=== PATIENT | female | born 1995 | race Caucasian/White ===

== ENCOUNTER 2017-01-18 18:28 | Observation (INO) | payer OTHER ==
[~2017-01-18] VITALS: Ht 182.9 cm; Wt 93.6 kg
[2017-01-18] MEDS ORDERED: SODIUM CHLORIDE 0.9% 1000ML 1,000 ML IV STA (20:08)
[2017-01-18] MEDS ORDERED: MoRPHine SULFATE 4 MG/ML 1 ML CARP\\VIAL IV STA (20:08)
[2017-01-18] MEDS ORDERED: ONDANSETRON 8 MG/54 ML D5W IV STA (20:08)
[2017-01-18] MEDS ORDERED: FLUT0.15 (20:16)
[2017-01-18] MEDS ORDERED: BCPILLS PO (20:16)
[2017-01-18] MEDS ORDERED: IBUP-1050 PO (20:16)
[2017-01-18] MEDS ORDERED: ASCO500C43 PO (20:16)
[2017-01-18 20:20] LABS: HEMATOCRIT 39.6 % (37-47); MEAN CORPUSCULAR HEMOGLOBIN 28.3 pg (25-34); MEAN CORPUSCULAR HGB CONC 33.3 g/dl (32-36); MEAN PLATELET VOLUME 10.3 fL (7.4-10.4); PLATELET COUNT 199 K/uL (130-400); RED BLOOD COUNT 4.66 M/uL (4.2-5.4); WHITE BLOOD COUNT 6.96 K/uL (4.8-10.8)
[2017-01-18] MEDS ORDERED: OPTIRAY 320 IV PRN (20:30)
[2017-01-18 20:31] LABS: MANUAL MICROSCOPIC REQUIRED? NO; REVIEW REQ? NO; URINE APPEARANCE CLEAR (CLEAR); URINE BILIRUBIN NEG (NEG); URINE COLOR YELLOW; URINE EPITHELIAL CELL AUTO >30 /lpf (0-5); URINE NITRITE NEG (NEG); URINE SPECIFIC GRAVITY 1.011 (1.000-1.030); UROBILINOGEN NEG (NEG); ZZUR CULT IF INDIC CLEAN CATCH YES
[2017-01-18 20:34] LABS: PARTIAL THROMBOPLASTIN RATIO 1.2; PROTHROMBIN TIME (PATIENT) 10.6 SECONDS (9.0-12.0)
[2017-01-18 20:40] LABS: BUN/CREATININE RATIO 11.5 (10-20); CALCIUM 8.6 mg/dl (8.5-10.1); POTASSIUM 3.8 mmol/L (3.5-5.1)
[2017-01-18 21:00] LABS: BASO % 0.9 %; BASO ABS # 0.06 K/uL (0-0.2); COMPLETE YES; EOS % 0.1 %; IG% 0.3 %; MONO % 5.2 %; NEUT % 60.5 %
--- NOTE | 2017-01-18 21:28 | DIAGNOSTIC IMAGING REPORT ---
CT ABD/PELVIS IV CONTRAST ONLY CLINICAL HISTORY: Abdominal pain. Constipation. Pain worse in the left lower quadrant. COMPARISON STUDY: None. TECHNIQUE: Following the IV administration of 116 mL of Optiray-320, CT scan of the abdomen and pelvis was performed from the lung bases to the proximal femurs. Images are reviewed in the axial, sagittal, and coronal planes. IV contrast was administered without complication. A dose lowering technique was utilized adhering to the principles of ALARA. CT DOSE: 489.03 mGy.cm FINDINGS: Lower chest: The heart is normal in size and configuration, without pericardial effusion. The lung bases and pleural spaces are clear. Liver: The contrast-enhanced liver is normal in size, contour, and attenuation. There is no intrahepatic biliary ductal dilatation. The hepatic veins and portal veins are patent. Gallbladder: Unremarkable. Spleen: The spleen is borderline enlarged measuring 13.1 cm Pancreas: Unremarkable. Adrenal glands: Unremarkable. Kidneys: There is symmetric renal cortical enhancement. The kidneys are normal in size without hydronephrosis. Bowel: Bowel evaluation is somewhat limited given the lack of orally administered contrast. There are no transition zones to indicate bowel obstruction. There are multiple fluid-filled pelvic small bowel loops. This could be secondary to an ileus or enteritis. The appendix appears normal Peritoneum: No free air is visualized. There is no significant free pelvic fluid Vasculature: The abdominal aorta is normal in course and caliber. Adenopathy: None. Pelvic viscera: Evaluation of the adnexal structures is difficult due to adjacent fluid-filled bowel loops, as no oral contrast was administered Skeletal structures: No destructive osseous lesions are seen. IMPRESSION: 1. Examination limited due to the lack of orally administered contrast 2. No evidence of bowel obstruction. No evidence of free air 3. Normal appendix 4. Prominent fluid-filled terminal ileum, and other fluid-filled small bowel loops. This is a nonspecific finding which could indicate an ileus or enteritis. 5. Borderline splenic enlargement Electronically signed by: Alex Kearney M.D. 01/18/2017 9:27 PM Dictated Date/Time: 01/18/2017 9:21 PM
[2017-01-18] MEDS ORDERED: ONDANSETRON INJ 2 MG/ML 2 ML VIAL IV PRN (23:15)
--- NOTE | 2017-01-18 23:15 | History and Physical ---
History & Physical Date & Time of Service: Jan 18, 2017 at 23:01 Chief Complaint: Bowel Obstruction,Sent By Audio[employer] Primary Care Physician: [facility] History of Present Illness Source: patient This is a 21-year-old female who presented to the emergency room with a complaint of abdominal pain. She has also had fever. This all began about 2 weeks ago. It was initially intermittent but the discomfort has now increased in intensity as well as frequency such that she is now having almost continuously. The more severe discomfort is in the left lower quadrant. She has a history of chronic constipation for which she normally took fiber gummis however the constipation seems to be worse as well. She has not had a bowel movement in the last 3-4 days. She normally would go 3 days or less. She had a small amount of blood with her bowels for one day at the beginning of this episode however that has resolved. She does not things that she is passing as much stool as she normally would've with each bowel movement. She has had fever as high as 100. That is also intermittent but seems to be more frequent. She has had fatigue. She denies myalgia and arthralgia. She has not had associated nausea or vomiting. She has been able to eat but her appetite has been poor. She is a nursing staffing coordinator appearance date. She does not think she has had exposure to anyone with mononucleosis, Past Medical/Surgical History Medical Problems: (1) Benign tumor Status: Resolved Social History Smoking Status: Never Smoker Allergies Coded Allergies: No Known Allergies (Unverified , 01/18/17) Home Medications Scheduled Ascorbic Acid (Vitamin C 500 mg), 500 MG PO DAILY Control Pills ( Control Pills), 1 TAB PO DAILY Fluticasone Propionate (Nasal) (Flonase Allergy Relief), 2 SPRAYS NA DAILY Ibuprofen (Advil), 400 MG PO PRN UD Review of Systems Constitutional: + fever, + fatigue, No chills Respiratory: No cough, No sputum Cardiovascular: No chest pain Abdomen: + problem reported (as per HPI) Genitourinary - Female: + problem reported (as per HPI) Endocrine: + fatigue Integumentary: No rash Physical Exam Vital Signs Date Time Temp Pulse Resp B/P (MAP) Pulse Ox O2 Delivery O2 Flow Rate FiO2 01/18/17 21:57 97 18 138/87 99 Room Air 01/18/17 19:45 36.9 100 20 125/76 97 01/18/17 18:55 37.4 108 18 99 Room Air General Appearance: WD/WN, no apparent distress Head: normocephalic Neck: supple, no adenopathy Respiratory/Chest: chest non-tender, lungs clear Cardiovascular: regular rate, rhythm Abdomen/GI: normal bowel sounds, non tender Back: normal inspection Skin: + rash (petechial areas in the lower extremities below the knees bilaterally) Lymphatic: + axillary node abnormality (2 small lymph nodes in the left axilla) , + inguinal node abnormality (a few shotty nodes in the left inguinal area) Rectal exam: had no masses. Moderate amount of hard stool that was heme negative. Diagnostics Laboratory Results Results Past 24 Hours Test 01/18/17 00:00 01/18/17 20:00 Range/Units Urine Color YELLOW Urine Appearance CLEAR CLEAR Urine pH 6.0 4.5-7.5 Urine Specific [place] 1.011 1.000-1.030 Urine Protein NEG NEG Urine Glucose (UA) NEG NEG Urine Ketones 1+ NEG Urine Occult Blood NEG NEG Urine Nitrite NEG NEG Urine Bilirubin NEG NEG Urine Urobilinogen NEG NEG Urine Leukocyte Esterase TRACE NEG Urine WBC (Auto) 1-5 0-5 /hpf Urine RBC (Auto) 0-4 0-4 /hpf Urine Hyaline Casts (Auto) 1-5 0-5 /lpf Urine Epithelial Cells (Auto) >30 0-5 /lpf Urine Bacteria (Auto) 1+ NEG Urine Test NEG NEG White Blood Count 6.96 4.8-10.8 K/uL Red Blood Count 4.66 4.2-5.4 M/uL Hemoglobin 13.2 12.0-16.0 g/dL Hematocrit 39.6 37-47 % Mean Corpuscular Volume 85.0 80-100 fL Mean Corpuscular Hemoglobin 28.3 25-34 pg Mean Corpuscular Hemoglobin Concent 33.3 32-36 g/dl Platelet Count 199 130-400 K/uL Mean Platelet Volume 10.3 7.4-10.4 fL Neutrophils (%) (Auto) 60.5 % Lymphocytes (%) (Auto) 33.0 % Monocytes (%) (Auto) 5.2 % Eosinophils (%) (Auto) 0.1 % Basophils (%) (Auto) 0.9 % Neutrophils # (Auto) 4.21 1.4-6.5 K/uL Lymphocytes # (Auto) 2.30 1.2-3.4 K/uL Monocytes # (Auto) 0.36 0.11-0.59 K/uL Eosinophils # (Auto) 0.01 0-0.5 K/uL Basophils # (Auto) 0.06 0-0.2 K/uL RDW Standard Deviation 41.7 36.4-46.3 fL RDW Coefficient of Variation 13.4 11.5-14.5 % Immature Granulocyte % (Auto) 0.3 % Immature Granulocyte # (Auto) 0.02 0.00-0.02 K/uL Red Blood Cell Morphology Unremarkable Prothrombin Time 10.6 9.0-12.0 SECONDS Prothromb Time International Ratio 1.0 0.9-1.1 Activated Partial Thromboplast Time 30.1 21.0-31.0 SECONDS Partial Thromboplastin Ratio 1.2 Sodium Level 135 136-145 mmol/L Potassium Level 3.8 3.5-5.1 mmol/L Chloride Level 105 98-107 mmol/L Carbon Dioxide Level 22 21-32 mmol/L Anion Gap 8.0 3-11 mmol/L Blood Urea Nitrogen 11 7-18 mg/dl Creatinine 1.00 0.60-1.20 mg/dl Est Creatinine Clear Calc Drug Dose 114.2 ml/min Estimated GFR () 93.3 Estimated GFR (Non- 80.5 BUN/Creatinine Ratio 11.5 10-20 Random Glucose 79 70-99 mg/dl Calcium Level 8.6 8.5-10.1 mg/dl Total Bilirubin 0.5 0.2-1 mg/dl Direct Bilirubin 0.1 0-0.2 mg/dl Aspartate Amino Transf (AST/SGOT) 39 15-37 U/L Alanine Aminotransferase (ALT/SGPT) 72 12-78 U/L Alkaline Phosphatase 88 45-117 U/L Total Protein 7.1 6.4-8.2 gm/dl Albumin 3.4 3.4-5.0 gm/dl Lipase 144 73-393 U/L Microbiology Results 01/18/17 Urine Culture, Received Pending Diagnostic Radiology FINDINGS: Lower chest: The heart is normal in size and configuration, without pericardial effusion. The lung bases and pleural spaces are clear. Liver: The contrast-enhanced liver is normal in size, contour, and attenuation. There is no intrahepatic biliary ductal dilatation. The hepatic veins and portal veins are patent. Gallbladder: Unremarkable. Spleen: The spleen is borderline enlarged measuring 13.1 cm Pancreas: Unremarkable. Adrenal glands: Unremarkable. Kidneys: There is symmetric renal cortical enhancement. The kidneys are normal in size without hydronephrosis. Bowel: Bowel evaluation is somewhat limited given the lack of orally administered contrast. There are no transition zones to indicate bowel obstruction. There are multiple fluid-filled pelvic small bowel loops. This could be secondary to an ileus or enteritis. The appendix appears normal Peritoneum: No free air is visualized. There is no significant free pelvic fluid Vasculature: The abdominal aorta is normal in course and caliber. Adenopathy: None. Pelvic viscera: Evaluation of the adnexal structures is difficult due to adjacent fluid-filled bowel loops, as no oral contrast was administered Skeletal structures: No destructive osseous lesions are seen. IMPRESSION: 1. Examination limited due to the lack of orally administered contrast 2. No evidence of bowel obstruction. No evidence of free air 3. Normal appendix 4. Prominent fluid-filled terminal ileum, and other fluid-filled small bowel loops. This is a nonspecific finding which could indicate an ileus or enteritis. 5. Borderline splenic enlargement Impression Assessment and Plan This patient has escalating abdominal discomfort with fever and constipation. There is no bowel obstruction by exam or by CT scan but she does have dilated small bowel that is fluid-filled. She has mild tenderness. Her white blood cell count is normal as is her white blood cell differential. The etiology of her symptoms is unclear. The etiology of her symptoms is unclear. We'll put her in under observation status with IV hydration. We'll get a Monospot. We' ll also administer MiraLAX for constipation. We'll continue with serial exams.
--- NOTE | 2017-01-18 23:31 | EMERGENCY ROOM VISIT NOTE ---
History Report prepared by Gerry: Kwame Dudley Under the Supervision of: Dr. Lb Galvan M.D. First contact with patient: 19:32 Chief Complaint: GI ASSESSMENT Stated Complaint: BOWEL OBSTRUCTION,SENT BY [employer] [facility] Triage Summary: see triage note History of Present Illness The patient is a 21 year old white female who presents to the ED with a cc of constant mild abdominal pain beginning one week ago. Positive fever, back pain, sore throat, and nausea. Her fevers began two weeks ago and peaked at 102 degrees. Seen at [facility] just prior to arrival and was found to have a bowel obstruction by x-ray. Has not been able to pass gas for a few days. Negative vomiting, cough, vaginal discharge, urinary symptoms. No previous abdominal surgeries. Her LNMP was two weeks ago. Source of History: patient Onset: One week ago Position: abdomen Symptom Intensity: mild Timing: constant Associated Symptoms: + fevers (two weeks ago peaking at 102 degrees), + sorethroat, + nausea, + back pain, No cough, No vomiting Note: Negative: vaginal discharge. Review of Systems See HPI for pertinent positives and negatives. A total of ten systems were reviewed and were otherwise negative. Past Medical & Surgical Medical Problems: (1) Abdominal pain (2) Benign tumor (3) Constipation (4) Fever (5) No Known Active Medical Problems Family History No pertinent family history stated. Social History Smoking Status: Never Smoker Occupation Status: [employer] student Current/Historical Medications Scheduled Ascorbic Acid (Vitamin C 500 mg), 500 MG PO DAILY Control Pills ( Control Pills), 1 TAB PO DAILY Fluticasone Propionate (Nasal) (Flonase Allergy Relief), 2 SPRAYS NA DAILY Ibuprofen (Advil), 400 MG PO PRN UD Allergies Coded Allergies: No Known Allergies (Unverified , 01/18/17) Physical Exam Vital Signs Date Time Temp Pulse Resp B/P (MAP) Pulse Ox O2 Delivery O2 Flow Rate FiO2 01/18/17 23:03 37.1 91 18 126/81 100 Room Air 01/18/17 21:57 97 18 138/87 99 Room Air 01/18/17 19:45 36.9 100 20 125/76 97 01/18/17 18:55 37.4 108 18 99 Room Air Physical Exam GENERAL: Awake, alert, mildly uncomfortable-appearing, NAD HENT: Normocephalic, atraumatic. EYES: Normal conjunctiva. Sclera non-icteric. NECK: Supple. No nuchal rigidity. FROM. RESPIRATORY: CTAB, no rhonchi, wheezing, crackles CARDIAC: Tachycardic rate, regular rhythm, no MRG ABDOMEN: Soft, BS+. Mild diffuse abdominal TTP. Worse in the LLQ. Negative obturators and Psoas. MSK: No chest wall TTP, no LE edema NEURO: GCS 15, CN 2-12 intact, moves all 4s on command SKIN: No rash or jaundice noted. Nonblanching petechiae of the bilateral lower extremities. Medical Decision & Procedures ER Provider Diagnostic Interpretation: CT: Radiology results as stated below per my review and radiologist interpretation CT ABD/PELVIS IV CONTRAST ONLY FINDINGS: Lower chest: The heart is normal in size and configuration, without pericardial effusion. The lung bases and pleural spaces are clear. Liver: The contrast-enhanced liver is normal in size, contour, and attenuation. There is no intrahepatic biliary ductal dilatation. The hepatic veins and portal veins are patent. Gallbladder: Unremarkable. Spleen: The spleen is borderline enlarged measuring 13.1 cm Pancreas: Unremarkable. Adrenal glands: Unremarkable. Kidneys: There is symmetric renal cortical enhancement. The kidneys are normal in size without hydronephrosis. Bowel: Bowel evaluation is somewhat limited given the lack of orally administered contrast. There are no transition zones to indicate bowel obstruction. There are multiple fluid-filled pelvic small bowel loops. This could be secondary to an ileus or enteritis. The appendix appears normal Peritoneum: No free air is visualized. There is no significant free pelvic fluid Vasculature: The abdominal aorta is normal in course and caliber. Adenopathy: None. Pelvic viscera: Evaluation of the adnexal structures is difficult due to adjacent fluid-filled bowel loops, as no oral contrast was administered Skeletal structures: No destructive osseous lesions are seen. IMPRESSION: 1. Examination limited due to the lack of orally administered contrast 2. No evidence of bowel obstruction. No evidence of free air 3. Normal appendix 4. Prominent fluid-filled terminal ileum, and other fluid-filled small bowel loops. This is a nonspecific finding which could indicate an ileus or enteritis. 5. Borderline splenic enlargement Electronically signed by: Alex Kearney M.D. 01/18/2017 9:27 PM Laboratory Results 01/18/17 20:00 Red Blood Count 4.66, Mean Corpuscular Volume 85.0, Mean Corpuscular Hemoglobin 28.3, Mean Corpuscular Hemoglobin Concent 33.3, Mean Platelet Volume 10.3, Neutrophils (%) (Auto) 60.5, Lymphocytes (%) (Auto) 33.0, Monocytes (%) (Auto) 5.2, Eosinophils (%) (Auto) 0.1, Basophils (%) (Auto) 0.9, Neutrophils # (Auto) 4.21, Lymphocytes # (Auto) 2.30, Monocytes # (Auto) 0.36, Eosinophils # (Auto) 0.01, Basophils # (Auto) 0.06 01/18/17 20:00 Test 01/18/17 00:00 01/18/17 20:00 Urine Color YELLOW Urine Appearance CLEAR (CLEAR) Urine pH 6.0 (4.5-7.5) Urine Specific [place] 1.011 (1.000-1.030) Urine Protein NEG (NEG) Urine Glucose (UA) NEG (NEG) Urine Ketones 1+ (NEG) Urine Occult Blood NEG (NEG) Urine Nitrite NEG (NEG) Urine Bilirubin NEG (NEG) Urine Urobilinogen NEG (NEG) Urine Leukocyte Esterase TRACE (NEG) Urine WBC (Auto) 1-5 /hpf (0-5) Urine RBC (Auto) 0-4 /hpf (0-4) Urine Hyaline Casts (Auto) 1-5 /lpf (0-5) Urine Epithelial Cells (Auto) >30 /lpf (0-5) Urine Bacteria (Auto) 1+ (NEG) Urine Test NEG (NEG) White Blood Count 6.96 K/uL (4.8-10.8) Red Blood Count 4.66 M/uL (4.2-5.4) Hemoglobin 13.2 g/dL (12.0-16.0) Hematocrit 39.6 % (37-47) Mean Corpuscular Volume 85.0 fL (80-100) Mean Corpuscular Hemoglobin 28.3 pg (25-34) Mean Corpuscular Hemoglobin Concent 33.3 g/dl (32-36) Platelet Count 199 K/uL (130-400) Mean Platelet Volume 10.3 fL (7.4-10.4) Neutrophils (%) (Auto) 60.5 % Lymphocytes (%) (Auto) 33.0 % Monocytes (%) (Auto) 5.2 % Eosinophils (%) (Auto) 0.1 % Basophils (%) (Auto) 0.9 % Neutrophils # (Auto) 4.21 K/uL (1.4-6.5) Lymphocytes # (Auto) 2.30 K/uL (1.2-3.4) Monocytes # (Auto) 0.36 K/uL (0.11-0.59) Eosinophils # (Auto) 0.01 K/uL (0-0.5) Basophils # (Auto) 0.06 K/uL (0-0.2) RDW Standard Deviation 41.7 fL (36.4-46.3) RDW Coefficient of Variation 13.4 % (11.5-14.5) Immature Granulocyte % (Auto) 0.3 % Immature Granulocyte # (Auto) 0.02 K/uL (0.00-0.02) Red Blood Cell Morphology Unremarkable Prothrombin Time 10.6 SECONDS (9.0-12.0) Prothromb Time International Ratio 1.0 (0.9-1.1) Activated Partial Thromboplast Time 30.1 SECONDS (21.0-31.0) Partial Thromboplastin Ratio 1.2 Anion Gap 8.0 mmol/L (3-11) Est Creatinine Clear Calc Drug Dose 114.2 ml/min Estimated GFR () 93.3 Estimated GFR (Non- 80.5 BUN/Creatinine Ratio 11.5 (10-20) Calcium Level 8.6 mg/dl (8.5-10.1) Total Bilirubin 0.5 mg/dl (0.2-1) Direct Bilirubin 0.1 mg/dl (0-0.2) Aspartate Amino Transf (AST/SGOT) 39 U/L (15-37) Alanine Aminotransferase (ALT/SGPT) 72 U/L (12-78) Alkaline Phosphatase 88 U/L (45-117) Total Protein 7.1 gm/dl (6.4-8.2) Albumin 3.4 gm/dl (3.4-5.0) Lipase 144 U/L (73-393) Monoscreen NEG (NEG) Laboratory results reviewed by me Medications Administered Medications (Trade) Dose Ordered Sig/Zainab Route Start Time Stop Time Status Last Admin Dose Admin Sodium Chloride 1,000 ml @ 999 mls/hr Q1H1M STAT IV 01/18/17 20:08 01/18/17 21:08 DC 01/18/17 20:51 999 MLS/HR Sodium Chloride 1,000 ml @ 150 mls/hr Q6H40M IV 01/18/17 23:09 02/17/17 23:08 01/19/17 00:24 150 MLS/HR ED Course 2001: The patient was evaluated in room B4B. A complete history and physical exam was performed. 2209: Upon reexamination, the patient was resting comfortably. I discussed the test results and treatment plan with her. The patient will be evaluated for further management. Medical Decision The patient is a 21 year old white female who presents to the ED with a cc of constant mild abdominal pain beginning one week ago. Patient found to have a bowel obstruction by x-ray at [facility] just prior to arrival. Differential diagnosis: Etiologies such as appendicitis, diverticulitis, PUD, biliary pathology, UTI, pancreatitis, obstruction, mesenteric ischemia, aortic pathology, infections, inflammatory bowel disease, renal colic, as well as others were entertained. Patient was seen in and evaluated at the bedside. Patient was seen at an [facility] and had a abdomen film which she states was read as concerning for obstruction. Patient states she is not had a bowel movement approximately one week. Patient states she has been obstipated for the last several days not passing gas. Patient has no prior history of abdominal surgeries. Patient states that she has had fever with some intermittent abdominal pain for about 2 weeks. Patient denies any emesis. Patient had blood work as well as CT abdomen pelvis which was completed. Patient was seen to have fluid-filled bowel loops at the ileum concerning for possible ileus but w/o true obstruction. I spoke with the general surgeon who agreed to evaluate the patient given the nature of the patient's complaint the chronicity of symptoms. Patient was admitted to general surgery with the medicine consult. Medication Reconcilliation Current Medication List: was personally reviewed by me Blood Pressure Screening Patient's blood pressure: Normal blood pressure Blood pressure disposition: Did not require urgent referral Consults Time Called: 2199 Consulting Physician: Dr. Vasquez -General Surgery Returned Call: [phone] Discussed the patient's case. The patient will be evaluated for further treatment and disposition. Impression Primary Impression: Ileus Additional Impression: Abdominal pain Scribe Attestation The scribe's documentation has been prepared under my direction and personally reviewed by me in its entirety. I confirm that the note above accurately reflects all work, treatment, procedures, and medical decision making performed by me. Departure Information Dispostion Being Evaluated By Hospitalist Referrals No Doctor, Assigned (PCP) Patient Instructions My [facility] Problem Qualifiers Additional Impression: Abdominal pain Abdominal location: generalized Qualified Codes: R10.84 - Generalized abdominal pain
[2017-01-19] VITALS: BP 123/82; PULSE 91; TEMP 36.4; Ht 182.9 cm; Wt 93.6 kg
--- NOTE | 2017-01-19 00:16 | Medical Consult ---
Consultation Date of Consultation: Jan 18, 2017 ~ 23:00 . Attending Physician: Guzman Vasquez M.D. Reason for Consultation: fever, rash . 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 No significant past medical history. Prone to constipation. No history of irritable bowel, inflammatory bowel disease, or other GI problems. 1-2 weeks ago noted irregular bowel habits with alternating constipation and loose bowels. She felt bloated. Took supplemental fiber with some improvement. Noted a few episodes of minimal hematochezia which she attributed to hemorrhoids. Developed worsening diffuse abdominal pain, somewhat relieved by ibuprofen. Noted fever, chills, sweats. Also noted some axillary adenopathy. Today she developed a rash on her legs. No weight loss. Seen in urgent care center where x-rays suggested a bowel obstruction. Referred to ED for further evaluation and management. Surgical evaluation with Dr. Vasquez was requested in ED. . Past Medical/Surgical History Medical Problems: left ureteral reflux and UTI's when infant no chronic health problems Surgical History: sinus surgery adenoidectomy hemorrhoidectomy . Family History no significant FH . Social History Smoking Status: Never Smoker Alcohol Use: socially Occupation Status: [employer] student Allergies Coded Allergies: No Known Allergies (Unverified , 01/18/17) Home Medications Reported Home Medications Medications Dose Route/Sig Max Daily Dose Days Date Category Advil (Ibuprofen) 200 Mg Tab 400 Mg PO PRN UD 01/18/17 Reported Vitamin C 500 mg (Ascorbic Acid) 1 Chw Chw 500 Mg PO DAILY 01/18/17 Reported Flonase Allergy Relief (Fluticasone Propionate (Nasal)) 50 Mcg/Act Spr 2 Sprays NA DAILY 01/18/17 Reported Control Pills (Miscellaneous) Tab 1 Tab PO DAILY 01/18/17 Reported Current Inpatient Medications Current Inpatient Medications Medications (Trade) Dose Ordered Sig/Zainab Route Start Time Stop Time Status Last Admin Dose Admin Ioversol (Optiray 320) 100 ml UD PRN IV 01/18/17 20:30 01/22/17 20:29 Ondansetron HCl (Zofran Inj) 4 mg Q6H PRN IV 01/18/17 23:15 02/17/17 23:14 Polyethylene (Miralax Powder Packet) 17 gm DAILY PRN PO 01/18/17 23:15 02/17/17 23:14 Sodium Chloride 1,000 ml @ 150 mls/hr Q6H40M IV 01/18/17 23:09 02/17/17 23:08 Review of Systems As noted above in HPI. . Physical Exam Date Time Temp Pulse Resp B/P (MAP) Pulse Ox O2 Delivery O2 Flow Rate FiO2 01/18/17 23:44 37.1 91 18 126/81 100 01/18/17 23:03 37.1 91 18 126/81 100 Room Air 01/18/17 21:57 97 18 138/87 99 Room Air 01/18/17 19:45 36.9 100 20 125/76 97 01/18/17 18:55 37.4 108 18 99 Room Air General Appearance: WD/WN, no apparent distress Head: normocephalic, atraumatic Eyes: PERRL, EOMI, sclerae normal ENT: pharynx normal Neck: supple, no adenopathy, thyroid normal Respiratory/Chest: lungs clear Cardiovascular: regular rate, rhythm, no edema, no gallop, + systolic murmur (I / systolic murmur at base) Abdomen/GI: + pertinent finding (quiet bowel sounds, slightly distended, soft, nontender, no palpable masses or organomegaly) Extremities/Musculoskelatal: no calf tenderness Neurologic/Psych: alert, oriented x 3 Skin: + pertinent finding (petechial rash bilat legs) Lymphatic: no adenopathy (no cervical or axillary adenopathy appreciated) Laboratory Results Last 24 Hours Test 01/18/17 20:00 White Blood Count 6.96 K/uL Red Blood Count 4.66 M/uL Hemoglobin 13.2 g/dL Hematocrit 39.6 % Mean Corpuscular Volume 85.0 fL Mean Corpuscular Hemoglobin 28.3 pg Mean Corpuscular Hemoglobin Concent 33.3 g/dl Platelet Count 199 K/uL Mean Platelet Volume 10.3 fL Neutrophils (%) (Auto) 60.5 % Lymphocytes (%) (Auto) 33.0 % Monocytes (%) (Auto) 5.2 % Eosinophils (%) (Auto) 0.1 % Basophils (%) (Auto) 0.9 % Neutrophils # (Auto) 4.21 K/uL Lymphocytes # (Auto) 2.30 K/uL Monocytes # (Auto) 0.36 K/uL Eosinophils # (Auto) 0.01 K/uL Basophils # (Auto) 0.06 K/uL RDW Standard Deviation 41.7 fL RDW Coefficient of Variation 13.4 % Immature Granulocyte % (Auto) 0.3 % Immature Granulocyte # (Auto) 0.02 K/uL Red Blood Cell Morphology Unremarkable Prothrombin Time 10.6 SECONDS Prothromb Time International Ratio 1.0 Activated Partial Thromboplast Time 30.1 SECONDS Partial Thromboplastin Ratio 1.2 Sodium Level 135 mmol/L Potassium Level 3.8 mmol/L Chloride Level 105 mmol/L Carbon Dioxide Level 22 mmol/L Anion Gap 8.0 mmol/L Blood Urea Nitrogen 11 mg/dl Creatinine 1.00 mg/dl Est Creatinine Clear Calc Drug Dose 114.2 ml/min Estimated GFR () 93.3 Estimated GFR (Non- 80.5 BUN/Creatinine Ratio 11.5 Random Glucose 79 mg/dl Calcium Level 8.6 mg/dl Total Bilirubin 0.5 mg/dl Direct Bilirubin 0.1 mg/dl Aspartate Amino Transf (AST/SGOT) 39 U/L Alanine Aminotransferase (ALT/SGPT) 72 U/L Alkaline Phosphatase 88 U/L Total Protein 7.1 gm/dl Albumin 3.4 gm/dl Lipase 144 U/L CT ABD/PELVIS IV CONTRAST ONLY FINDINGS: Lower chest: The heart is normal in size and configuration, without pericardial effusion. The lung bases and pleural spaces are clear. Liver: The contrast-enhanced liver is normal in size, contour, and attenuation. There is no intrahepatic biliary ductal dilatation. The hepatic veins and portal veins are patent. Gallbladder: Unremarkable. Spleen: The spleen is borderline enlarged measuring 13.1 cm Pancreas: Unremarkable. Adrenal glands: Unremarkable. Kidneys: There is symmetric renal cortical enhancement. The kidneys are normal in size without hydronephrosis. Bowel: Bowel evaluation is somewhat limited given the lack of orally administered contrast. There are no transition zones to indicate bowel obstruction. There are multiple fluid-filled pelvic small bowel loops. This could be secondary to an ileus or enteritis. The appendix appears normal Peritoneum: No free air is visualized. There is no significant free pelvic fluid Vasculature: The abdominal aorta is normal in course and caliber. Adenopathy: None. Pelvic viscera: Evaluation of the adnexal structures is difficult due to adjacent fluid-filled bowel loops, as no oral contrast was administered Skeletal structures: No destructive osseous lesions are seen. IMPRESSION: 1. Examination limited due to the lack of orally administered contrast 2. No evidence of bowel obstruction. No evidence of free air 3. Normal appendix 4. Prominent fluid-filled terminal ileum, and other fluid-filled small bowel loops. This is a nonspecific finding which could indicate an ileus or enteritis. 5. Borderline splenic enlargement Electronically signed by: Alex Kearney M.D. 01/18/2017 9:27 PM Dictated Date/Time: 01/18/2017 9:21 PM . Assessment & Plan ABDOMINAL PAIN CT demonstrates fluid-filled loops of small bowel, no apparent bowel obstruction. Evaluated in ED by General Surgery. CT findings are nonspecific. Consider infectious enteritis. Consider inflammatory bowel disease if symptoms persist or worsen. BORDERLINE SPLENOMEGALY Spleen measured 13 cm. May or may not be pathologic (patient is 6 feet tall and spleen size may be within normal limits). CBC and LFT's normal. Monospot pending. FEVER Could be secondary to GI process or other etiology. Consider mononucleosis in light of borderline splenomegaly. No respiratory symptoms. No urinary symptoms and UA negative. Petechial rash raises possibilities of tick-borne illness (e.g., Rickettsia, Ehrlichiosis, Anaplasmosis) or vasculitis. Patient spends time outdoors, but no known tick bites. Check tick-borne illness PCR panel if ongoing unexplained fever. PETECHIAL RASH Platelets normal. May have infectious process or vasculitis. Consider Derm consult if no improvement. VTE PROPHYLAXIS Ambulate. DISPOSITION Will need outpatient f/u for above problems to assure resolution. Thank you for this consultation. We will follow the patient with you during their hospital stay. Dr. Wilkerson will be covering during day shift starting 01/19. You can reach a member of the [facility] Hospitalist Team 16/11 via pager @ [phone]. You can reach me via cell @ [phone]. .
[2017-01-19] MEDS: SODIUM CHLORIDE 0.9% 1000ML 1,000 ML IV SCH ×4 (00:24→18:49)
[2017-01-19] MEDS: IBUPROFEN 600 MG TAB PO PRN ×2 (00:37→10:21)
[2017-01-19] MEDS: POLYETHYLENE (MIRALAX) 17 GM PACK PO PRN ×2 (00:37→10:21)
[2017-01-19] MEDS ORDERED: IV FLUIDS COMPLETED PRN (03:15)
[2017-01-19 07:17] VITALS: BP 117/76; PULSE 108; TEMP 36.9; O2SAT 99
[2017-01-19 07:40] LABS: BASO % 1.1 %; BASO ABS # 0.06 K/uL (0-0.2); COMPLETE YES; EOS % 0.7 %; HEMATOCRIT 40.9 % (37-47); IG% 0.2 %; LYMPH % 29.8 %; MEAN CELL VOLUME 86.8 fL (80-100); MEAN CORPUSCULAR HEMOGLOBIN 28.2 pg (25-34); MEAN CORPUSCULAR HGB CONC 32.5 g/dl (32-36); MEAN PLATELET VOLUME 10.3 fL (7.4-10.4); MONO % 4.1 %; NEUT % 64.1 %; PLATELET COUNT 183 K/uL (130-400); RED BLOOD COUNT 4.71 M/uL (4.2-5.4); WHITE BLOOD COUNT 5.37 K/uL (4.8-10.8)
[2017-01-19 08:10] LABS: BUN/CREATININE RATIO 9.1 (10-20); CALCIUM 8.4 mg/dl (8.5-10.1); CREATININE 0.86 mg/dl (0.60-1.20); POTASSIUM 3.9 mmol/L (3.5-5.1)
[2017-01-19 08:13] LABS: ALB/GLOB RATIO 0.8 (0.9-2)
--- NOTE | 2017-01-19 11:35 | Surgery Progress Note ---
Surgery Progress Note Date of Service Jan 19, 2017. Subjective No bowel movement, No flatus, No nausea, No vomiting Abdominal pain more of a dull ache today, severity unchanged Objective Vital Signs: Date Time Temp Pulse Resp B/P (MAP) Pulse Ox O2 Delivery O2 Flow Rate FiO2 01/19/17 07:30 Room Air 01/19/17 07:17 36.9 108 18 117/76 (90) 99 Room Air 01/19/17 00:00 Room Air 01/19/17 00:00 36.4 91 18 123/82 Room Air 100.0 01/18/17 23:44 37.1 91 18 126/81 100 01/18/17 23:03 37.1 91 18 126/81 100 Room Air 01/18/17 21:57 97 18 138/87 99 Room Air 01/18/17 19:45 36.9 100 20 125/76 97 01/18/17 18:55 37.4 108 18 99 Room Air Abdomen: normal bowel sounds, non distended, soft, + tenderness (unchanged) Laboratory Results: Results Past 24 Hours Test 01/18/17 20:00 01/19/17 07:13 Range/Units White Blood Count 6.96 5.37 4.8-10.8 K/uL Red Blood Count 4.66 4.71 4.2-5.4 M/uL Hemoglobin 13.2 13.3 12.0-16.0 g/dL Hematocrit 39.6 40.9 37-47 % Mean Corpuscular Volume 85.0 86.8 80-100 fL Mean Corpuscular Hemoglobin 28.3 28.2 25-34 pg Mean Corpuscular Hemoglobin Concent 33.3 32.5 32-36 g/dl Platelet Count 199 183 130-400 K/uL Mean Platelet Volume 10.3 10.3 7.4-10.4 fL Neutrophils (%) (Auto) 60.5 64.1 % Lymphocytes (%) (Auto) 33.0 29.8 % Monocytes (%) (Auto) 5.2 4.1 % Eosinophils (%) (Auto) 0.1 0.7 % Basophils (%) (Auto) 0.9 1.1 % Neutrophils # (Auto) 4.21 3.44 1.4-6.5 K/uL Lymphocytes # (Auto) 2.30 1.60 1.2-3.4 K/uL Monocytes # (Auto) 0.36 0.22 0.11-0.59 K/uL Eosinophils # (Auto) 0.01 0.04 0-0.5 K/uL Basophils # (Auto) 0.06 0.06 0-0.2 K/uL RDW Standard Deviation 41.7 43.1 36.4-46.3 fL RDW Coefficient of Variation 13.4 13.5 11.5-14.5 % Immature Granulocyte % (Auto) 0.3 0.2 % Immature Granulocyte # (Auto) 0.02 0.01 0.00-0.02 K/uL Red Blood Cell Morphology Unremarkable Prothrombin Time 10.6 9.0-12.0 SECONDS Prothromb Time International Ratio 1.0 0.9-1.1 Activated Partial Thromboplast Time 30.1 21.0-31.0 SECONDS Partial Thromboplastin Ratio 1.2 Sodium Level 135 139 136-145 mmol/L Potassium Level 3.8 3.9 3.5-5.1 mmol/L Chloride Level 105 107 98-107 mmol/L Carbon Dioxide Level 22 22 21-32 mmol/L Anion Gap 8.0 10.0 3-11 mmol/L Blood Urea Nitrogen 11 8 7-18 mg/dl Creatinine 1.00 0.86 0.60-1.20 mg/dl Est Creatinine Clear Calc Drug Dose 114.2 132.8 ml/min Estimated GFR () 93.3 111.9 Estimated GFR (Non- 80.5 96.6 BUN/Creatinine Ratio 11.5 9.1 10-20 Random Glucose 79 77 70-99 mg/dl Calcium Level 8.6 8.4 8.5-10.1 mg/dl Total Bilirubin 0.5 0.6 0.2-1 mg/dl Direct Bilirubin 0.1 0-0.2 mg/dl Aspartate Amino Transf (AST/SGOT) 39 40 15-37 U/L Alanine Aminotransferase (ALT/SGPT) 72 65 12-78 U/L Alkaline Phosphatase 88 81 45-117 U/L Total Protein 7.1 6.6 6.4-8.2 gm/dl Albumin 3.4 3.0 3.4-5.0 gm/dl Lipase 144 73-393 U/L Monoscreen NEG NEG Globulin 3.6 2.5-4.0 gm/dl Albumin/Globulin Ratio 0.8 0.9-2 Assessment & Plan Abdominal pain, constipation of unclear etiology Will try Mag citrate and a soap suds enema Continue with clear liquids Benadryl for rash
[2017-01-19] MEDS ORDERED: MAGNESIUM CITRATE 296 ML/BTL PO SCH (12:00)
[2017-01-19] MEDS ORDERED: SOAP SUDS ENEMA PR SCH (12:00)
[2017-01-19] MEDS ORDERED: ACETAMINOPHEN 325 MG TAB PO PRN (12:30)
--- NOTE | 2017-01-19 12:36 | Progress Note ---
Medicine Progress Note Date & Time of Visit: Jan 19, 2017 at 12:20. Subjective has been having 2 week history of intermittent fevers- takes Ibuprofen, which lyses the fever, associated with generalized headache and facial flushing has been feeling fatigued, easily short of breath with exercise which is unusual at the [facility], fever of 102, and developed petechial rash on the lower legs patient seen sitting up in bed, parents at her bedside states she is still constipated, mild generalized abdominal discomfort, no nausea/vomiting still has petechial rash on her legs, and now spreading to her chest, upper arms and back; having facial flush again- denies pruritus no headache, dizziness, nausea, sore throat, chest pain, palpitations, changes with urination no other symptoms Objective Last 8 Hrs Date Time Temp Pulse Resp B/P (MAP) Pulse Ox O2 Delivery O2 Flow Rate FiO2 01/19/17 07:30 Room Air 01/19/17 07:17 36.9 108 18 117/76 (90) 99 Room Air Physical Exam: General- oriented x 3, not in distress, speaks in sentences with no effort Head- atraumatic Eyes- PERRL, EOMI, anicteric ENT- oropharynx clear (+ )hypertrophic tonsils but no erythema/exudates Neck- supple, no JVD, no adenopathy, no thyromegaly Lungs- clear to auscultation and percussion, no rales/wheezes Heart- mild tachycardia, regular rhythm, no murmurs Abdomen- hypoactive bowel sounds, non distended, soft, nontender Extremities- no pretibial edema, no calf tenderness; peripheral pulses intact (+) petechial rash on bilateral lower legs Neuro- alert, oriented x 3; no gross focal deficits Skin- (+) mild erythema on the upper chest, (+) faint macular rash on the upper arms and back Laboratory Results: Last 24 Hours Test 01/18/17 20:00 01/19/17 07:13 01/19/17 12:12 White Blood Count 6.96 K/uL 5.37 K/uL Red Blood Count 4.66 M/uL 4.71 M/uL Hemoglobin 13.2 g/dL 13.3 g/dL Hematocrit 39.6 % 40.9 % Mean Corpuscular Volume 85.0 fL 86.8 fL Mean Corpuscular Hemoglobin 28.3 pg 28.2 pg Mean Corpuscular Hemoglobin Concent 33.3 g/dl 32.5 g/dl Platelet Count 199 K/uL 183 K/uL Mean Platelet Volume 10.3 fL 10.3 fL Neutrophils (%) (Auto) 60.5 % 64.1 % Lymphocytes (%) (Auto) 33.0 % 29.8 % Monocytes (%) (Auto) 5.2 % 4.1 % Eosinophils (%) (Auto) 0.1 % 0.7 % Basophils (%) (Auto) 0.9 % 1.1 % Neutrophils # (Auto) 4.21 K/uL 3.44 K/uL Lymphocytes # (Auto) 2.30 K/uL 1.60 K/uL Monocytes # (Auto) 0.36 K/uL 0.22 K/uL Eosinophils # (Auto) 0.01 K/uL 0.04 K/uL Basophils # (Auto) 0.06 K/uL 0.06 K/uL RDW Standard Deviation 41.7 fL 43.1 fL RDW Coefficient of Variation 13.4 % 13.5 % Immature Granulocyte % (Auto) 0.3 % 0.2 % Immature Granulocyte # (Auto) 0.02 K/uL 0.01 K/uL Red Blood Cell Morphology Unremarkable Prothrombin Time 10.6 SECONDS Prothromb Time International Ratio 1.0 Activated Partial Thromboplast Time 30.1 SECONDS Partial Thromboplastin Ratio 1.2 Sodium Level 135 mmol/L 139 mmol/L Potassium Level 3.8 mmol/L 3.9 mmol/L Chloride Level 105 mmol/L 107 mmol/L Carbon Dioxide Level 22 mmol/L 22 mmol/L Anion Gap 8.0 mmol/L 10.0 mmol/L Blood Urea Nitrogen 11 mg/dl 8 mg/dl Creatinine 1.00 mg/dl 0.86 mg/dl Est Creatinine Clear Calc Drug Dose 114.2 ml/min 132.8 ml/min Estimated GFR () 93.3 111.9 Estimated GFR (Non- 80.5 96.6 BUN/Creatinine Ratio 11.5 9.1 Random Glucose 79 mg/dl 77 mg/dl Calcium Level 8.6 mg/dl 8.4 mg/dl Total Bilirubin 0.5 mg/dl 0.6 mg/dl Direct Bilirubin 0.1 mg/dl Aspartate Amino Transf (AST/SGOT) 39 U/L 40 U/L Alanine Aminotransferase (ALT/SGPT) 72 U/L 65 U/L Alkaline Phosphatase 88 U/L 81 U/L Total Protein 7.1 gm/dl 6.6 gm/dl Albumin 3.4 gm/dl 3.0 gm/dl Lipase 144 U/L Monoscreen NEG Globulin 3.6 gm/dl Albumin/Globulin Ratio 0.8 Date/Time Source Procedure Growth Status 01/19/17 12:12 Blood Blood Culture Pending Ordered 01/19/17 12:12 Blood Blood Culture Pending Ordered Assessment & Plan 21 year old female with no known past medical history presenting with fever + rash and constipation. CONSTIPATION - CT abdomen: IMPRESSION: 1. Examination limited due to the lack of orally administered contrast 2. No evidence of bowel obstruction. No evidence of free air 3. Normal appendix 4. Prominent fluid-filled terminal ileum, and other fluid-filled small bowel loops. This is a nonspecific finding which could indicate an ileus or enteritis. 5. Borderline splenic enlargement - trial of Milk of Magnesium and Soap tamy enema today - on clear liquids IV NSS FEVER + RASH - unclear etiology, denies any recent travels viral syndrome? enteritis? r/o lyme, vasculitic process - monospot: negative check blood cultures, lyme titers, ESR/CRP to r/o vasculitis process check CXR - ff up urine cultures - will start empiric Zosyn IV for possible enteritis, until cultures return round the clock Ibuprofen, PRN Tylenol IV fluids EXERTIONAL DYSPNEA - on control pills - check CXR, D dimer to r/o PE/DVT BORDERLINE SPLENOMEGALY Spleen measured 13 cm. May or may not be pathologic (patient is 6 feet tall and spleen size may be within normal limits). CBC and LFT's normal. Monospot negative VTE PROPHYLAXIS Ambulate. Dr. Roth will be following the patient starting tomorrow 01/20/17. Thank you for this consultation. We will follow the patient with you during their hospital stay. You can reach a member of the [facility] Hospitalist Team 16/11 via pager @ . Current Inpatient Medications: Current Inpatient Medications Medications (Trade) Dose Ordered Sig/Zainab Route Start Time Stop Time Status Last Admin Dose Admin Ioversol (Optiray 320) 100 ml UD PRN IV 01/18/17 20:30 9/29/17 20:29 Ondansetron HCl (Zofran Inj) 4 mg Q6H PRN IV 01/18/17 23:15 02/17/17 23:14 Polyethylene (Miralax Powder Packet) 17 gm DAILY PRN PO 01/18/17 23:15 02/17/17 23:14 01/19/17 10:21 17 GM Sodium Chloride 1,000 ml @ 150 mls/hr Q6H40M IV 01/18/17 23:09 02/17/17 23:08 01/19/17 06:31 150 MLS/HR Miscellaneous (Iv Fluids Completed) 1 ea PRN PRN N/A 01/19/17 03:15 01/19/18 03:14 Magnesium Citrate (Citrate Of Magnesia Soln) 240 ml TODAY@1200 PO 01/19/17 12:00 01/19/17 16:00 Miscellaneous (Soap Suds Enema) 1 ea TODAY@1200 MD 01/19/17 12:00 01/19/17 16:00 Diphenhydramine HCl (Benadryl Cap) 25 mg TODAY@1200 PO 01/19/17 12:00 01/19/17 16:00 Ibuprofen (Motrin Tab) 600 mg Q6H PO 01/19/17 16:00 02/18/17 00:14 UNV Piperacillin Sod/ Tazobactam Sod 3.375 gm/Dextrose 115 ml @ 200 mls/hr Q6 IV 01/19/17 12:30 01/21/17 12:29 UNV Acetaminophen (Tylenol Tab) 650 mg Q6H PRN PO 01/19/17 12:30 02/18/17 12:29 UNV
[2017-01-19] MEDS ORDERED: PIPERACILL/TAZOBAC IV 3.375 GM in DEXTROSE 5% 100ML 100 ML IV SCH (13:30)
--- NOTE | 2017-01-19 13:50 | DIAGNOSTIC IMAGING REPORT ---
CHEST ONE VIEW PORTABLE HISTORY: shortness of breath COMPARISON: None. FINDINGS: The lungs are clear. Cardiac silhouette is normal in size. No pleural effusions. No pneumothorax. IMPRESSION: No acute process. Electronically signed by: Ang Olivarez M.D. 01/19/2017 1:49 PM Dictated Date/Time: 01/19/2017 1:48 PM
[2017-01-19] MEDS ORDERED: OPTIRAY 320 IV PRN (14:15)
[2017-01-19] MEDS ORDERED: PIPERACILL/TAZOBAC CONSULT ACTIVE PRN (14:15)
[2017-01-19 14:21] LABS: LYME DISEASE AB IGG NEG (NEG); LYME DISEASE AB IGM NEG (NEG)
--- NOTE | 2017-01-19 14:46 | Progress Note ---
Progress Note Date of Service Jan 19, 2017. Progress Note ID Consult Dictate #[id number] A/P: 1. Fever,rash -Can continue abx for now pending blood cultures -will check viral serologies -tick borne serologies pending -for ct chest ,await results -will follow, thank you
--- NOTE | 2017-01-19 15:09 | INFECT. DISEASE CONSULTATION ---
DATE OF CONSULTATION: 01/19/2017 REQUESTING PHYSICIAN: Dr. Vasquez. HISTORY OF PRESENT ILLNESS: This is a 21-year-old female who was admitted to the hospital with 2 weeks worth of lower abdominal pain. She also complained of constipation and occasional bright red blood per rectum with bowel movements, which she attributed to hemorrhoids. She did undergo a CAT scan of the abdomen and pelvis with contrast in the Emergency Room, which showed a questionable ileitis, but no perforation or abscess. She does have a normal white blood cell count esr normal at 7. Her CRP is mildly elevated at 8. She did have a D-dimer done today and this is markedly elevated and she is due for a CAT scan of the chest later today. There was some concern about mononucleosis and mono screen was negative. She was placed empirically on Zosyn. She has been afebrile since admission to the hospital, but does continue to complain of subjective fevers and chills. 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 She has no recent travel outside of the country. They have 2 dogs at home. She denies any sick contacts. She denies any nausea or vomiting. She states her appetite has been stable. She denies any shortness of breath or cough. She also is noted to have a petechial rash on her lower extremities, which is not painful or itchy. This has appeared within the last few days. She denies any insect bites or tick bites. A Lyme screen is pending. Her urinalysis was negative. In the Emergency Room, she has no urinary symptoms. Her menstrual cycle is normal. Urine test is unremarkable. All remaining review of systems reviewed and are negative. Her parents are at the bedside during my examination. PAST MEDICAL HISTORY: She has a history of a benign tumor. PAST SURGICAL HISTORY: Unremarkable. SOCIAL HISTORY: Negative for tobacco use. ALLERGIES: She has no known drug allergies. CURRENT MEDICATIONS: Include Motrin, Zosyn, Tylenol, magnesium, soapsuds enema, Benadryl, Zofran, and MiraLax. PHYSICAL EXAMINATION: VITAL SIGNS: She is afebrile with a T-max of 37.4 on admission, pulse 108, respiratory rate 18, blood pressure 117/76 and oxygen saturation is 99%-100% on room air. GENERAL: She is awake, alert and oriented x3. She is in no acute distress. HEENT: Mucous membranes are moist. Extraocular muscles are intact. HEART: Regular. LUNGS: Clear bilaterally. ABDOMEN: Soft and nondistended. There is minimal tenderness in the left lower quadrant. There is no rebound, rigidity or guarding. EXTREMITIES: There is no lower extremity edema. There is a petechial rash on her bilateral lower extremities. There are no other open lesions. There are no upper extremity, trunk or back rashes. LABORATORY STUDIES: CBC reveals a white blood cell count of 5.3, hemoglobin 13.3, and platelets are 193. Sed rate is 7. Chemistry panel reveals a sodium of 139, potassium 3.9, chloride 107, bicarbonate 22, BUN 8, creatinine 0.8, and glucose 77. AST 40 and ALT 65. CRP is 8.7. Lipase was normal. In the ER, urinalysis was unremarkable. Urine test was negative. Lyme disease screen is negative. [place] screen is negative. Urine culture is negative. Blood cultures are pending. Chest x-ray was unremarkable. CT of the abdomen and pelvis is as above. ASSESSMENT AND PLAN: Petechial rash. Could consider infectious versus noninfectious etiologies. We will check additional viral serologies. Await CAT scan of the chest findings. She will continue with serial abdominal exams. She can remain on Zosyn pending the results of blood cultures, which are currently pending. If she does have any diarrhea, stool culture should be obtained; however, she has not had a bowel movement since admission to the hospital. We will follow along with you. Thank you for this consultation. IRVING
--- NOTE | 2017-01-19 15:40 | DIAGNOSTIC IMAGING REPORT ---
BILATERAL LOWER EXTREMITY VENOUS DOPPLER HISTORY: Bilateral lower shimmy swelling with concern for pulmonary embolus. r/o DVT COMPARISON STUDY: None. FINDINGS: There is normal compressibility, flow, and augmentation within the bilateral lower extremity deep venous systems. IMPRESSION: No DVT within the right or left lower extremity. Electronically signed by: Amadou Benson M.D. 01/19/2017 3:39 PM Dictated Date/Time: 01/19/2017 3:38 PM
--- NOTE | 2017-01-19 15:46 | DIAGNOSTIC IMAGING REPORT ---
(CHEST FOR PE) ANGIO WITH CT DOSE: 242.30 mGycm HISTORY: 21 years-old Female presents with acute chest pain. Shortness of breath. Initial exam. TECHNIQUE: Multiple CTA images of the chest were obtained after the intravenous administration of 90 ml Optiray 320. Coronal and sagittal MIPS were obtained from the axial data set and were submitted for review. A dose lowering technique was utilized adhering to the principles of ALARA. COMPARISON: Chest radiograph of same day FINDINGS: CTA: There is opacification of the pulmonary arteries to the level of the segmental branches without convincing evidence of acute pulmonary embolism. The subsegmental branches are not well opacified. Majority of the contrast bolus is still present within the SVC. Heart size is normal. No pericardial effusion. No thoracic aneurysm or dissection. CT CHEST: No dominant thyroid nodule is seen. No pathologically adenopathy by CT size criteria. There is no pneumothorax, pleural effusion or focal airspace consolidation. Nonspecific 6 x 5 mm noncalcified pulmonary nodule involves the lateral basal segment left lower lobe on image 93. The imaged upper abdominal structures are normal. The osseous structures appear intact. IMPRESSION: 1. Mildly limited evaluation of the pulmonary arterial tree as above secondary to suboptimal contrast bolus timing and respiratory motion. Within the limitations of the study, there is no evidence of pulmonary thromboembolic disease. No acute aortic pathology. 2. Noncalcified 6 mm pulmonary nodule of the lateral basal segment left lower lobe is nonspecific, however statistically benign in a patient of this age group. 3. No focal airspace consolidation to suggest pneumonia. The above report was generated using voice recognition software. It may contain grammatical, syntax or spelling errors. Electronically signed by: Amadou Benson M.D. 01/19/2017 3:45 PM Dictated Date/Time: 01/19/2017 3:39 PM
[2017-01-19 15:57] VITALS: BP 119/73; PULSE 87; TEMP 36.5; O2SAT 100
[2017-01-19 16:00] VITALS: O2SAT 100
[2017-01-19] MEDS: IBUPROFEN 600 MG TAB PO SCH ×2 (16:27→21:30)
[2017-01-19] MEDS: PIPERACILL/TAZOBAC IV 3.375 GM in DEXTROSE 5% 100ML 100 ML IV SCH (20:20)
[2017-01-19 22:58] VITALS: BP 109/58; PULSE 96; TEMP 36.9; O2SAT 99
[2017-01-19 23:15] VITALS: O2SAT 100
[2017-01-20] MEDS ORDERED: LEVALBUTEROL/IPRATROPIUM NEB INH STA (00:10)
[2017-01-20] MEDS ORDERED: LEVALBUTEROL/IPRATROPIUM NEB INH PRN (00:15)
[2017-01-20] MEDS ORDERED: LEVALBUTEROL 1.25MG/0.5ML NEB INH STA (00:31)
[2017-01-20] MEDS ORDERED: IPRATROPIUM BROMIDE NEB SOLN 0.02% 2.5 ML VIAL INH STA (00:31)
[2017-01-20 00:40] VITALS: PULSE 84; O2SAT 99
[2017-01-20] MEDS ORDERED: LEVALBUTEROL 1.25MG/0.5ML NEB INH PRN (00:45)
[2017-01-20] MEDS ORDERED: IPRATROPIUM BROMIDE NEB SOLN 0.02% 2.5 ML VIAL INH PRN (00:45)
[2017-01-20] MEDS: IBUPROFEN 600 MG TAB PO SCH ×4 (04:18→22:15)
[2017-01-20] MEDS: PIPERACILL/TAZOBAC IV 3.375 GM in DEXTROSE 5% 100ML 100 ML IV SCH ×3 (04:18→20:07)
[2017-01-20 04:27] VITALS: TEMP 38.1
[2017-01-20 07:05] VITALS: BP 98/63; PULSE 72; TEMP 36.5; O2SAT 100
--- NOTE | 2017-01-20 07:10 | DIAGNOSTIC IMAGING REPORT ---
CHEST ONE VIEW PORTABLE HISTORY: Short of breath. COMPARISON: Chest CTA 01/19/2017. FINDINGS: The lungs are clear. Cardiac silhouette is normal in size. No pleural effusions. No pneumothorax. IMPRESSION: No acute process. Electronically signed by: Ang Olivarez M.D. 01/20/2017 7:08 AM Dictated Date/Time: 01/20/2017 7:08 AM
[2017-01-20 09:13] LABS: HEMATOCRIT 38.7 % (37-47); MEAN CELL VOLUME 85.8 fL (80-100); MEAN CORPUSCULAR HEMOGLOBIN 28.4 pg (25-34); MEAN CORPUSCULAR HGB CONC 33.1 g/dl (32-36); MEAN PLATELET VOLUME 10.4 fL (7.4-10.4); PLATELET COUNT 159 K/uL (130-400); RED BLOOD COUNT 4.51 M/uL (4.2-5.4); WHITE BLOOD COUNT 4.74 K/uL (4.8-10.8)
--- NOTE | 2017-01-20 10:01 | Progress Note ---
Subjective Date of Service: Jan 20, 2017. Subjective Pt evaluation today including: conversation w/ patient, conversation w/ family , physical exam, lab review, review of studies, review of inpatient medication list Saw/examined the patient in room 378 +fever this morning States her abdominal pain feels better today; she has had bowel movements +rash on the lower extremities, non-tender Problem List Medical Problems: (1) Ileus Status: Acute Review of Systems Constitutional: + fever, No chills, No weakness Respiratory: + cough, No sputum, No wheezing, No shortness of breath, No dyspnea on exertion, No dyspnea at rest, No hemoptysis Cardiac: No chest pain Abdomen: + pain, + constipation (improving), + GI bleeding, No nausea, No vomiting, No diarrhea Female : No dysuria, No urinary frequency Heme: No abnormal bleeding/bruising Skin: + rash Medications Current Inpatient Medications Medications (Trade) Dose Ordered Sig/Zainab Route Start Time Stop Time Status Last Admin Dose Admin Ioversol (Optiray 320) 100 ml UD PRN IV 01/18/17 20:30 01/22/17 20:29 Ondansetron HCl (Zofran Inj) 4 mg Q6H PRN IV 01/18/17 23:15 02/17/17 23:14 Polyethylene (Miralax Powder Packet) 17 gm DAILY PRN PO 01/18/17 23:15 02/17/17 23:14 01/19/17 10:21 17 GM Sodium Chloride 1,000 ml @ 150 mls/hr Q6H40M IV 01/18/17 23:09 02/17/17 23:08 Future Hold 01/19/17 18:49 150 MLS/HR Miscellaneous (Iv Fluids Completed) 1 ea PRN PRN N/A 01/19/17 03:15 01/19/18 03:14 Ibuprofen (Motrin Tab) 600 mg Q6H PO 01/19/17 16:00 02/18/17 00:14 01/20/17 04:18 600 MG Piperacillin Sod/ Tazobactam Sod 3.375 gm/Dextrose 115 ml @ 28.75 mls/ hr Q8H IV 01/19/17 20:00 01/21/17 19:59 01/20/17 04:18 28.75 MLS/HR Acetaminophen (Tylenol Tab) 650 mg Q6H PRN PO 01/19/17 12:30 02/18/17 12:29 01/20/17 04:20 650 MG Piperacillin Sod/ Tazobactam Sod (Consult) 1 ea UD PRN N/A 01/19/17 14:15 02/18/17 14:14 Ioversol (Optiray 320) 111 ml UD PRN IV 01/19/17 14:15 01/23/17 14:14 Ipratropium [place] (Atrovent 0.02% 0.5MG/2.5ML Neb) 0.5 mg Q4H PRN INH 01/20/17 00:45 02/19/17 00:44 Levalbuterol (Xopenex 1.25MG/ 0.5ML Neb) 1.25 mg Q4H PRN INH 01/20/17 00:45 02/19/17 00:44 Objective Vital Signs Date Time Temp Pulse Resp B/P (MAP) Pulse Ox O2 Delivery O2 Flow Rate FiO2 01/20/17 07:05 36.5 72 17 98/63 (75) 100 Room Air 01/20/17 04:27 38.1 01/20/17 00:40 84 20 99 Room Air 01/19/17 23:15 100 Room Air 01/19/17 22:58 36.9 96 16 109/58 (75) 99 Room Air 01/19/17 16:00 100 Room Air 01/19/17 15:57 36.5 87 18 119/73 (88) 100 Room Air Physical Exam General Appearance: no apparent distress Eyes: normal inspection ENT: hearing grossly normal Respiratory/Chest: lungs clear, normal breath sounds, no respiratory distress, no accessory muscle use Cardiovascular: regular rate, rhythm, no edema, no murmur Abdomen: normal bowel sounds, non tender, soft Extremities: normal inspection, no pedal edema Neurologic/Psychiatric: no motor/sensory deficits, alert, normal mood/affect Skin: + pertinent finding (lacy, non-raised, erythematous rash on lower extremities) Laboratory Results Last 24 Hours Test 01/19/17 12:47 01/19/17 16:14 01/20/17 08:45 Erythrocyte Sedimentation Rate 7 mm/hr D-Dimer 3600 ug/L FEU C-Reactive Protein 8.79 mg/dl Lyme Disease IgG Antibody NEG Lyme Disease IgM Antibody NEG White Blood Count 4.74 K/uL Red Blood Count 4.51 M/uL Hemoglobin 12.8 g/dL Hematocrit 38.7 % Mean Corpuscular Volume 85.8 fL Mean Corpuscular Hemoglobin 28.4 pg Mean Corpuscular Hemoglobin Concent 33.1 g/dl RDW Standard Deviation 43.1 fL RDW Coefficient of Variation 13.6 % Platelet Count 159 K/uL Mean Platelet Volume 10.4 fL Assessment and Plan This is a 21 year old female with no past medical history presents with fever/ rash and constipation Fever of Unknown Origin patient with +fevers, spiked again on 01/20 currently on Zosyn with cultures pending monospot negative, Lyme negative UA/urine culture negative d-dimer was elevated, but CTA suggests no acute PE, Lower Extremity Doppler suggest no DVTs CXR on 01/20 - no acute process no WBC elevation will await blood cultures possibly viral gastroenteritis patient does have a lacy erythematous rash on lower extremities - may need to r/ o vasculitis; possible rheumatology consultation if no improvement Tylenol + ibuprofen PRN for fevers Constipation improving; has had BMs with magnesium citrate and miralax general surgery for further input possible ileus/obstruction? Borderline Splenomegaly Spleen measured 13 cm May or may not be pathologic (patient is 6 feet tall and spleen size may be within normal limits) CBC and LFT's normal Monospot negative DVT ppx Ambulate
--- NOTE | 2017-01-20 10:29 | Progress Note ---
Subjective Date of Service: Jan 20, 2017. Subjective Pt evaluation today including: conversation w/ patient, conversation w/ family , physical exam, chart review, lab review pt seen in followup, parents in room. moving bowels. less abd pain, states loose but denies diarrhea, no bleeding. no n/v. tolerating clears. still with rash, no change. isolated fever last pm, tmax 38.1. remains on zosyn. multiple labs pending, blood cultures pending. No itching no pain in legs, rash has not spread. no cp, sob, cough. All remaining ros reviewed and are negative. Problem List Medical Problems: (1) Ileus Status: Acute Objective Vital Signs Date Time Temp Pulse Resp B/P (MAP) Pulse Ox O2 Delivery O2 Flow Rate FiO2 01/20/17 07:05 36.5 72 17 98/63 (75) 100 Room Air 01/20/17 04:27 38.1 01/20/17 00:40 84 20 99 Room Air 01/19/17 23:15 100 Room Air 01/19/17 22:58 36.9 96 16 109/58 (75) 99 Room Air 01/19/17 16:00 100 Room Air 01/19/17 15:57 36.5 87 18 119/73 (88) 100 Room Air Physical Exam General Appearance: WD/WN, no apparent distress Eyes: normal inspection, EOMI Neck: supple Respiratory/Chest: lungs clear, normal breath sounds, no respiratory distress Cardiovascular: regular rate, rhythm, no edema, no murmur Abdomen: non tender, soft Extremities: non-tender, no pedal edema Neurologic/Psychiatric: alert, oriented x 3 Skin: + rash Comments: b/l le rash remains unchanged. no warmth, non tender Laboratory Results Item Value Date Time Urine Culture - Preliminary Resulted 01/18/17 0000 Urine , Clean Catch NO GROWTH - LESS THAN 1,000 COLONIES/... Last 24 Hours Test 01/19/17 12:47 01/19/17 16:14 01/20/17 08:45 Erythrocyte Sedimentation Rate 7 mm/hr D-Dimer 3600 ug/L FEU C-Reactive Protein 8.79 mg/dl Lyme Disease IgG Antibody NEG Lyme Disease IgM Antibody NEG White Blood Count 4.74 K/uL Red Blood Count 4.51 M/uL Hemoglobin 12.8 g/dL Hematocrit 38.7 % Mean Corpuscular Volume 85.8 fL Mean Corpuscular Hemoglobin 28.4 pg Mean Corpuscular Hemoglobin Concent 33.1 g/dl RDW Standard Deviation 43.1 fL RDW Coefficient of Variation 13.6 % Platelet Count 159 K/uL Mean Platelet Volume 10.4 fL Assessment and Plan (1) Fever Assessment & Plan: will check stool culture now that pt is moving bowels. will also check rpr due to rash. tick borne serologies pending. will start doxy emperically pending.
--- NOTE | 2017-01-20 10:36 | Surgery Progress Note ---
Surgery Progress Note Date of Service Jan 20, 2017. Subjective Post OP Day: HD # 2 Feeling slightly better in regards to abdominal pain. Had about 4 bowel movements after enema/Mag citrate. Still feels as though she needs to have bowel movements. Wants another bottle of Mag citrate. Fever last night No chest pain Slight shortness of breath this morning, was given Nebulizer, breathing regular now Rash still present on legs and slightly tender today NO nausea or vomiting, tolerating clear liquids Objective Vital Signs: Date Time Temp Pulse Resp B/P (MAP) Pulse Ox O2 Delivery O2 Flow Rate FiO2 01/20/17 07:05 36.5 72 17 98/63 (75) 100 Room Air 01/20/17 04:27 38.1 01/20/17 00:40 84 20 99 Room Air 01/19/17 23:15 100 Room Air 01/19/17 22:58 36.9 96 16 109/58 (75) 99 Room Air 01/19/17 16:00 100 Room Air 01/19/17 15:57 36.5 87 18 119/73 (88) 100 Room Air General Appearance: WD/WN, no apparent distress Head: normocephalic, atraumatic, + pertinent finding (facial flushing) Neck: trachea midline Respiratory/Chest: lungs clear, normal breath sounds, no respiratory distress, no accessory muscle use Cardiovascular: regular rate, rhythm, no murmur Abdomen: soft, + distended (mild), + tenderness (LLQ on deep palpation, voluntary guarding, no rebound, rigidity, or peritonitis) Extremities: + pertinent finding (lacy rash of the lower extremities and hands) Laboratory Results: Results Past 24 Hours Test 01/19/17 12:47 01/19/17 16:14 01/20/17 08:45 Range/Units Erythrocyte Sedimentation Rate 7 0-21 mm/hr D-Dimer 3600 0-500 ug/L FEU C-Reactive Protein 8.79 0-0.29 mg/dl Lyme Disease IgG Antibody NEG NEG Lyme Disease IgM Antibody NEG NEG White Blood Count 4.74 4.8-10.8 K/uL Red Blood Count 4.51 4.2-5.4 M/uL Hemoglobin 12.8 12.0-16.0 g/dL Hematocrit 38.7 37-47 % Mean Corpuscular Volume 85.8 80-100 fL Mean Corpuscular Hemoglobin 28.4 25-34 pg Mean Corpuscular Hemoglobin Concent 33.1 32-36 g/dl RDW Standard Deviation 43.1 36.4-46.3 fL RDW Coefficient of Variation 13.6 11.5-14.5 % Platelet Count 159 130-400 K/uL Mean Platelet Volume 10.4 7.4-10.4 fL Microbiology Results 01/19/17 Blood Culture, Received Pending 01/19/17 Blood Culture, Received Pending Assessment & Plan 21 year-old female who presented to hospital with abdominal pain x 2 weeks. Found to have some dilated small bowel and stool retention on CT scan of abdomen and pelvis. She developed facial flushing yesterday and has lacy rash of the lower extremities with slight shortness of breath. Developed low grade fever last evening. CT of the chest and Duplex US of lower extremity has rule out PE and DVT respectively. Monospot and Lyme antibodies negative. Plan: No acute surgical intervention required, no signs of obstruction continue Ibuprofen and Tylenol as needed for pain continue clear liquids 240 mls of Mag Citrate today appreciate Medicine and infectious disease recommendations, will transfer to Dr. Roth pending, continue IV antibiotics will continue to monitor Dr. Vasquez has seen and examined patient, agrees with above
[2017-01-20] MEDS ORDERED: MAGNESIUM CITRATE 296 ML/BTL PO SCH (11:00)
[2017-01-20] MEDS: DOXYCYCLINE HYCLATE 100 MG CAP PO SCH ×2 (11:51→21:06)
[2017-01-20 15:20] VITALS: BP 125/80; PULSE 72; TEMP 36.7; O2SAT 99
[2017-01-20] MEDS ORDERED: NITROGLYCERIN 0.4 MG SL PER TAB CHARGE SL STA (22:20)
[2017-01-20 22:23] VITALS: BP 138/76; PULSE 108; TEMP 36.7; O2SAT 100
[2017-01-20] MEDS ORDERED: TRAMADOL HCL 50 MG TAB PO PRN (22:30)
[2017-01-20 23:02] LABS: PARTIAL THROMBOPLASTIN RATIO 1.2
[2017-01-20 23:10] LABS: CALCIUM 8.8 mg/dl (8.5-10.1); MAGNESIUM 2.2 mg/dl (1.8-2.4); POTASSIUM 3.7 mmol/L (3.5-5.1)
[2017-01-20 23:14] LABS: ALB/GLOB RATIO 0.7 (0.9-2)
[2017-01-21] MEDS: IBUPROFEN 600 MG TAB PO SCH ×2 (03:50→10:21)
[2017-01-21] MEDS: PIPERACILL/TAZOBAC IV 3.375 GM in DEXTROSE 5% 100ML 100 ML IV SCH ×3 (03:50→12:22)
[2017-01-21 06:41] LABS: BUN/CREATININE RATIO 3.8 (10-20); CALCIUM 8.2 mg/dl (8.5-10.1); CREATININE 0.78 mg/dl (0.60-1.20)
[2017-01-21 06:56] LABS: ALB/GLOB RATIO 0.7 (0.9-2)
[2017-01-21 07:41] VITALS: BP 102/60; PULSE 72; TEMP 36.6; O2SAT 99
--- NOTE | 2017-01-21 08:29 | Surgery Progress Note ---
Surgery Progress Note Date of Service Jan 21, 2017. Subjective Post OP Day: HD # 3 abdominal pain resolved Feeling much better to when she came in + bowel movements yesterday after Mag Citrate- liquid/brown no fevers or chills +nausea with taking Mag Citrate- resolved, no vomiting Objective Vital Signs: Date Time Temp Pulse Resp B/P (MAP) Pulse Ox O2 Delivery O2 Flow Rate FiO2 01/21/17 07:41 36.6 72 16 102/60 (74) 99 Room Air 01/21/17 07:30 Room Air 01/20/17 23:25 Room Air 01/20/17 22:23 36.7 108 20 138/76 (96) 100 Room Air 01/20/17 15:20 36.7 72 18 125/80 (95) 99 Room Air 01/20/17 15:15 Room Air General Appearance: WD/WN, no apparent distress, + pertinent finding (slight flushing of the face) Head: normocephalic, atraumatic Neck: trachea midline Respiratory/Chest: no respiratory distress, no accessory muscle use Abdomen: normal bowel sounds, non tender, non distended, soft, no organomegaly Laboratory Results: Results Past 24 Hours Test 01/20/17 08:45 01/20/17 10:59 01/20/17 22:43 01/21/17 05:55 Range/Units White Blood Count 4.74 4.8-10.8 K/uL Red Blood Count 4.51 4.2-5.4 M/uL Hemoglobin 12.8 12.0-16.0 g/dL Hematocrit 38.7 37-47 % Mean Corpuscular Volume 85.8 80-100 fL Mean Corpuscular Hemoglobin 28.4 25-34 pg Mean Corpuscular Hemoglobin Concent 33.1 32-36 g/dl RDW Standard Deviation 43.1 36.4-46.3 fL RDW Coefficient of Variation 13.6 11.5-14.5 % Platelet Count 159 130-400 K/uL Mean Platelet Volume 10.4 7.4-10.4 fL Rapid Plasma Reagin NONREACTIVE NONREACT Activated Partial Thromboplast Time 30.0 21.0-31.0 SECONDS Partial Thromboplastin Ratio 1.2 Sodium Level 136 138 136-145 mmol/L Potassium Level 3.7 4.0 3.5-5.1 mmol/L Chloride Level 103 108 98-107 mmol/L Carbon Dioxide Level 25 23 21-32 mmol/L Anion Gap 8.0 7.0 3-11 mmol/L Blood Urea Nitrogen 4 3 7-18 mg/dl Creatinine 1.00 0.78 0.60-1.20 mg/dl Est Creatinine Clear Calc Drug Dose 114.2 146.4 ml/min Estimated GFR () 93.3 126.0 Estimated GFR (Non- 80.5 108.7 BUN/Creatinine Ratio 4.0 3.8 10-20 Random Glucose 110 85 70-99 mg/dl Calcium Level 8.8 8.2 8.5-10.1 mg/dl Magnesium Level 2.2 1.8-2.4 mg/dl Total Bilirubin 0.5 0.5 0.2-1 mg/dl Aspartate Amino Transf (AST/SGOT) 60 52 15-37 U/L Alanine Aminotransferase (ALT/SGPT) 80 63 12-78 U/L Alkaline Phosphatase 98 77 45-117 U/L Troponin I 0.016 0.015 0-0.045 ng/ml Total Protein 7.3 5.9 6.4-8.2 gm/dl Albumin 3.1 2.5 3.4-5.0 gm/dl Globulin 4.2 3.4 2.5-4.0 gm/dl Albumin/Globulin Ratio 0.7 0.7 0.9-2 Lipase 117 66 73-393 U/L Microbiology Results 01/20/17 Shiga Toxin Test, Received Pending 01/20/17 Stool Culture, Received Pending Assessment & Plan 21 year-old female who presented to hospital with abdominal pain x 2 weeks. Found to have some dilated small bowel and stool retention on CT scan of abdomen and pelvis. She developed facial flushing Catrina and has lacy rash of the lower extremities. Afebrile last night. CT of the chest and Duplex US of lower extremity has rule out PE and DVT respectively. Monospot and Lyme antibodies negative. Tick borne serologies pending. BC x 2 negative. Plan: No acute surgical intervention required, no signs of obstruction continue Ibuprofen and Tylenol as needed for pain continue full liquids, advance diet as tolerated Miralax daily Continue medical management will continue to monitor Dr. Vasquez has seen and examined patient, agrees with above
[2017-01-21] MEDS: DOXYCYCLINE HYCLATE 100 MG CAP PO SCH (09:00)
[2017-01-21] MEDS ORDERED: POLYETHYLENE (MIRALAX) 17 GM PACK PO SCH (09:00)
[2017-01-21] MEDS ORDERED: DXY100 PO (14:37)
[2017-01-21] MEDS ORDERED: MTR600 PO (14:37)
--- NOTE | 2017-01-21 14:43 | Progress Note ---
Subjective Date of Service: Jan 21, 2017. Subjective Pt evaluation today including: conversation w/ patient, physical exam, lab review, review of studies, review of inpatient medication list Saw/examined the patient in room 378 States her rash is doing much better, no fevers She feels fine, no problems/issues to note Problem List Medical Problems: (1) Ileus Status: Acute Review of Systems Constitutional: No fever, No chills Respiratory: No cough, No sputum, No shortness of breath Cardiac: No chest pain Skin: + rash (improving) Medications Current Inpatient Medications Medications (Trade) Dose Ordered Sig/Zainab Route Start Time Stop Time Status Last Admin Dose Admin Ioversol (Optiray 320) 100 ml UD PRN IV 01/18/17 20:30 01/22/17 20:29 Ondansetron HCl (Zofran Inj) 4 mg Q6H PRN IV 01/18/17 23:15 02/17/17 23:14 Sodium Chloride 1,000 ml @ 150 mls/hr Q6H40M IV 01/18/17 23:09 02/17/17 23:08 Future Hold 01/19/17 18:49 150 MLS/HR Miscellaneous (Iv Fluids Completed) 1 ea PRN PRN N/A 01/19/17 03:15 01/19/18 03:14 Ibuprofen (Motrin Tab) 600 mg Q6H PO 01/19/17 16:00 02/18/17 00:14 01/21/17 10:21 600 MG Piperacillin Sod/ Tazobactam Sod 3.375 gm/Dextrose 115 ml @ 28.75 mls/ hr Q8H IV 01/19/17 20:00 01/21/17 19:59 01/21/17 03:50 28.75 MLS/HR Acetaminophen (Tylenol Tab) 650 mg Q6H PRN PO 01/19/17 12:30 02/18/17 12:29 01/20/17 04:20 650 MG Piperacillin Sod/ Tazobactam Sod (Consult) 1 ea UD PRN N/A 01/19/17 14:15 02/18/17 14:14 Ioversol (Optiray 320) 111 ml UD PRN IV 01/19/17 14:15 01/23/17 14:14 Ipratropium [place] (Atrovent 0.02% 0.5MG/2.5ML Neb) 0.5 mg Q4H PRN INH 01/20/17 00:45 02/19/17 00:44 Levalbuterol (Xopenex 1.25MG/ 0.5ML Neb) 1.25 mg Q4H PRN INH 01/20/17 00:45 02/19/17 00:44 Doxycycline Hyclate (Vibramycin Cap) 100 mg BID PO 01/20/17 11:30 01/30/17 11:29 01/21/17 09:00 100 MG Tramadol HCl (Ultram Tab) 25 mg Q6H PRN PO 01/20/17 22:30 02/19/17 22:29 Polyethylene (Miralax Powder Packet) 17 gm DAILY PO 01/21/17 09:00 02/17/17 23:14 01/21/17 09:01 17 GM Objective Vital Signs Date Time Temp Pulse Resp B/P (MAP) Pulse Ox O2 Delivery O2 Flow Rate FiO2 01/21/17 07:41 36.6 72 16 102/60 (74) 99 Room Air 01/21/17 07:30 Room Air 01/20/17 23:25 Room Air 01/20/17 22:23 36.7 108 20 138/76 (96) 100 Room Air 01/20/17 15:20 36.7 72 18 125/80 (95) 99 Room Air 01/20/17 15:15 Room Air Physical Exam General Appearance: no apparent distress Respiratory/Chest: lungs clear, normal breath sounds, no respiratory distress, no accessory muscle use Cardiovascular: regular rate, rhythm, no edema, no murmur Abdomen: normal bowel sounds, non tender, soft Extremities: normal inspection, no pedal edema Neurologic/Psychiatric: no motor/sensory deficits, alert, normal mood/affect Laboratory Results Last 24 Hours Test 01/20/17 22:43 01/21/17 05:55 Activated Partial Thromboplast Time 30.0 SECONDS Partial Thromboplastin Ratio 1.2 Sodium Level 136 mmol/L 138 mmol/L Potassium Level 3.7 mmol/L 4.0 mmol/L Chloride Level 103 mmol/L 108 mmol/L Carbon Dioxide Level 25 mmol/L 23 mmol/L Anion Gap 8.0 mmol/L 7.0 mmol/L Blood Urea Nitrogen 4 mg/dl 3 mg/dl Creatinine 1.00 mg/dl 0.78 mg/dl Est Creatinine Clear Calc Drug Dose 114.2 ml/min 146.4 ml/min Estimated GFR () 93.3 126.0 Estimated GFR (Non- 80.5 108.7 BUN/Creatinine Ratio 4.0 3.8 Random Glucose 110 mg/dl 85 mg/dl Calcium Level 8.8 mg/dl 8.2 mg/dl Magnesium Level 2.2 mg/dl Total Bilirubin 0.5 mg/dl 0.5 mg/dl Aspartate Amino Transf (AST/SGOT) 60 U/L 52 U/L Alanine Aminotransferase (ALT/SGPT) 80 U/L 63 U/L Alkaline Phosphatase 98 U/L 77 U/L Troponin I 0.016 ng/ml 0.015 ng/ml Total Protein 7.3 gm/dl 5.9 gm/dl Albumin 3.1 gm/dl 2.5 gm/dl Globulin 4.2 gm/dl 3.4 gm/dl Albumin/Globulin Ratio 0.7 0.7 Lipase 117 U/L 66 U/L Assessment and Plan This is a 21 year old female with no past medical history presents with fever/ rash and constipation Fever of Unknown Origin 01/21 patient is doing better with doxycycline possible Anaplasmosis as per ID will d/c on 14 days of doxy further labs pending 01/20 patient with +fevers, spiked again on 01/20 currently on Zosyn with cultures pending monospot negative, Lyme negative UA/urine culture negative d-dimer was elevated, but CTA suggests no acute PE, Lower Extremity Doppler suggest no DVTs CXR on 01/20 - no acute process no WBC elevation will await blood cultures possibly viral gastroenteritis patient does have a lacy erythematous rash on lower extremities - may need to r/ o vasculitis; possible rheumatology consultation if no improvement Tylenol + ibuprofen PRN for fevers Constipation - resolved improving; has had BMs with magnesium citrate and miralax general surgery for further input possible ileus/obstruction? Borderline Splenomegaly Spleen measured 13 cm May or may not be pathologic (patient is 6 feet tall and spleen size may be within normal limits) CBC and LFT's normal Monospot negative DVT ppx Ambulate
--- NOTE | 2017-01-21 14:54 | Discharge Instructions ---
Discharge Instructions Date of Service Jan 21, 2017. Admission Reason for Admission: Abdominal Pain, Constipation, Fever Discharge Discharge Diagnosis / Problem: Possible Anaplasmosis; Tick Borne Illness Discharge Goals Goal(s): Decrease discomfort, Improve function, Diagnostic testing, Therapeutic intervention Activity Recommendations Activity Limitations: resume your previous activity . Instructions / Follow-Up Instructions / Follow-Up Please take doxycycline twice a day for 14 days Follow-up with your primary care physician Current Hospital Diet Patient's current hospital diet: Full Liquid Diet Discharge Diet Recommended Diet: Regular Diet Pending Studies Studies pending at discharge: no Medical Emergencies . Who to Call and When: Medical Emergencies: If at any time you feel your situation is an emergency, please call 911 immediately. . Non-Emergent Contact Non-Emergency issues call your: Primary Care Provider Call Non-Emergent contact if: you have a fever, temperature is above 101 . . "Provider Documentation" section prepared by Dona Roth. . VTE Core Measure Inpt VTE Proph given/why not?: Treatment not indicated
--- NOTE | 2017-01-21 14:55 | Discharge Summary ---
Discharge Summary Date of Service Jan 21, 2017. Discharge Summary Admission Date: Jan 18, 2017 at 23:14 Discharge Date: Jan 21, 2017 Discharge Disposition: Home Principal Diagnosis: Fever; possible Tick Borne Illness Possible Anaplasmosis Medication Reconciliation New Medications: Doxycycline Hyclate (Doxycycline Hyclate) 100 Mg Cap 100 MG PO BID for 14 Days, #28 CAP Ibuprofen (Ibuprofen) 600 Mg Tab 600 MG PO Q6H for 14 Days, #56 TAB Continued Medications: Ascorbic Acid (Vitamin C 500 mg) 1 Chw Chw 500 MG PO DAILY Control Pills ( Control Pills) Tab 1 TAB PO DAILY, TAB Fluticasone Propionate (Nasal) (Flonase Allergy Relief) 50 Mcg/Act Spr 2 SPRAYS NA DAILY Discontinued Medications: Ibuprofen (Advil) 200 Mg Tab 400 MG PO PRN UD, TAB Admission Information HPI (per Admitting provider): This is a 21-year-old female who presented to the emergency room with a complaint of abdominal pain. She has also had fever. This all began about 2 weeks ago. It was initially intermittent but the discomfort has now increased in intensity as well as frequency such that she is now having almost continuously. The more severe discomfort is in the left lower quadrant. She has a history of chronic constipation for which she normally took fiber gummis however the constipation seems to be worse as well. She has not had a bowel movement in the last 3-4 days. She normally would go 3 days or less. She had a small amount of blood with her bowels for one day at the beginning of this episode however that has resolved. She does not things that she is passing as much stool as she normally would've with each bowel movement. She has had fever as high as 100. That is also intermittent but seems to be more frequent. She has had fatigue. She denies myalgia and arthralgia. She has not had associated nausea or vomiting. She has been able to eat but her appetite has been poor. She is a nursing coordinator appearance date. She does not think she has had exposure to anyone with mononucleosis, Physical Exam (per Admitting): General Appearance: WD/WN, no apparent distress Head: normocephalic Neck: supple, no adenopathy Respiratory/Chest: chest non-tender, lungs clear Cardiovascular: regular rate, rhythm Abdomen/GI: normal bowel sounds, non tender Back: normal inspection Skin: + rash (petechial areas in the lower extremities below the knees bilaterally) Lymphatic: + axillary node abnormality (2 small lymph nodes in the left axilla), + inguinal node abnormality (a few shotty nodes in the left inguinal area) Physical Exam (per Admitting): Rectal exam: had no masses. Moderate amount of hard stool that was heme negative. Hospital Course This is a 21 year old female with no past medical history presents with fever/ rash and constipation Fever of Unknown Origin 01/21 patient is doing better with doxycycline possible Anaplasmosis as per ID will d/c on 14 days of doxy further labs pending 01/20 patient with +fevers, spiked again on 01/20 currently on Zosyn with cultures pending monospot negative, Lyme negative UA/urine culture negative d-dimer was elevated, but CTA suggests no acute PE, Lower Extremity Doppler suggest no DVTs CXR on 01/20 - no acute process no WBC elevation will await blood cultures possibly viral gastroenteritis patient does have a lacy erythematous rash on lower extremities - may need to r/ o vasculitis; possible rheumatology consultation if no improvement Tylenol + ibuprofen PRN for fevers Constipation - resolved improving; has had BMs with magnesium citrate and miralax general surgery for further input possible ileus/obstruction? Borderline Splenomegaly Spleen measured 13 cm May or may not be pathologic (patient is 6 feet tall and spleen size may be within normal limits) CBC and LFT's normal Monospot negative DVT ppx Ambulate Total time spent on discharge = 25 minutes This includes examination of the patient, discharge planning, medication reconciliation, and communication with other providers. Discharge Instructions Please take doxycycline twice a day for 14 days Follow-up with your primary care physician
[2017-01-21 15:21] VITALS: BP 102/60; PULSE 72; TEMP 36.6; O2SAT 99
[2017-01-22 08:35] LABS: RMSF IgM AB Not Detected (Not Detected)
[2017-01-22 23:20] LABS: ANAPLASMA PHAGOCYTOPHIL IGG <1:64 (<1:64); ANAPLASMA PHAGOCYTOPHIL IGM <1:20 (<1:20); CYTOMEGALOVIRUS IGG AB 0.61 U/ML; EHRLICHIA CHAFF IGG AB <1:64 (<1:64); EHRLICHIA CHAFF IGM AB <1:20 (<1:20); PARVOVIRUS IgG INDEX 6.4 (<0.9); PARVOVIRUS IgM INDEX 0.7 (<0.9)
== END 2017-01-21 16:07 | disposition home or self-care (01) ==
LOC: C.EDB 18:29 → C.MSN 23:14 → ENRESERV 23:31
PROVIDERS: ADMIT Surgery; ATTEND Family Medicine
DX: R50.9 Fever, unspecified (principal); K59.00 Constipation, unspecified; R10.84 Generalized abdominal pain; R21 Rash and other nonspecific skin eruption; R16.1 Splenomegaly, not elsewhere classified